=== PATIENT | female | born 1955 | race Caucasian/White ===

== ENCOUNTER 2024-02-02 08:59 | Day surgery (SDC) | payer MEDICARE ==
[2024-01-31 11:45] VITALS: BMI 30.2
[~2024-02-02 08:59] MED LIST: Fluorouracil 100 MG, Enoxaparin 25 MG, EPINEPHrine 0.3 MG in Ophthalmic Irrigation Solu... IRR SCH
[2024-02-02] MEDS ORDERED: PHENYLephrine 2.5% Ophth Soln 15 ml Bottle ONE (10:14)
[2024-02-02] MEDS ORDERED: Cyclopentolate 1% Opth Drop 2 ML BOT ONE (10:14)
[2024-02-02] MEDS ORDERED: fentaNYL 50 mcg/mL 1 mL Vial ONE (11:35)
[2024-02-02] MEDS ORDERED: PROPOFOL 20 ML ONE (11:36)
[2024-02-02] MEDS ORDERED: Midazolam HCl 2 mg/2 ml Vial ONE (11:36)
[2024-02-02] MEDS ORDERED: Bupivacaine 0.75% 10 ML VIAL ONE (11:48)
[2024-02-02] MEDS ORDERED: Lidocaine 4% PF 5 ML AMP ONE (11:48)
[2024-02-02] MEDS ORDERED: CEFAZOLIN 1 GM VIAL ONE (11:48)
[2024-02-02] MEDS ORDERED: Triamcinolone 40 MG/ML VIAL ONE (11:48)
[2024-02-02] MEDS ORDERED: Lidocaine 1% PF 5 ML VIAL ONE (11:48)
== END 2024-02-02 13:40 | disposition home or self-care (01) ==
LOC: SDC 08:59
PROVIDERS: ATTEND Ophthalmology Retina Specialist
PROC: 08T43ZZ Resection of Right Vitreous, Percutaneous Approach (ICD-10-PCS; principal; 2024-02-02)
DX: H33.011 Retinal detachment with single break, right eye (principal)
CPT/HCPCS: 67025; 67113; J0171; J0690; J1650; J2250; J2704; J3010; J3301; J3490; J9190